=== PATIENT | male | born 1970 | race Caucasian/White ===

== ENCOUNTER 2020-05-24 11:35 | Inpatient (IN) | payer OTHER, SELFPAY ==
[~2020-05-24] VITALS: Ht 167.6 cm; Wt 108.4 kg
[2020-05-24] MEDS ORDERED: CEFTRIAXONE SODIUM 2 GM VIAL ONE ×2 (13:02→13:14)
[2020-05-24 13:07] LABS: BASOPHILS % (AUTO) 0.2 % (0.0-5.0); EOSINOPHILS % (AUTO) 0.8 % (0.0-8.0); HEMATOCRIT 39.9 % (42-54); LYMPHOCYTES % (AUTO) 6.6 % (21.0-51.0); MEAN CORPUSCULAR HEMOGLOBIN 32.1 pg (27.0-33.0); MEAN CORPUSCULAR HGB CONC 35.8 g/dL (32.0-36.0); MEAN CORPUSCULAR VOLUME 89.5 fL (79-99); MONOCYTES % (AUTO) 10.7 % (3.0-13.0); PLATELET COUNT (AUTO) 350 K/uL (130-400); RED BLOOD CELL COUNT(AUTO) 4.46 MIL/uL (4.50-6.20); RED CELL DISTRIBUTION WIDTH 11.4 % (11.0-15.5); WHITE BLOOD COUNT (AUTO) 16.1 K/uL (4.8-10.8)
[2020-05-24 13:07] LABS: APPEARANCE,URINE CLEAR (CLEAR); BILIRUBIN,URINE SMALL (NEGATIVE); COLOR,URINE YELLOW (YELLOW); GLUCOSE, URINE (UA) NEGATIVE (NEGATIVE); KETONES,URINE NEGATIVE (NEGATIVE); LEUKOCYTE ESTERASE ,URINE NEGATIVE (NEGATIVE); NITRATE,URINE NEGATIVE (NEGATIVE); OCCULT BLOOD,URINE LARGE (NEGATIVE); PROTEIN,URINE 100 mg/dL (NEGATIVE)
[2020-05-24 13:11] LABS: INR 1.05 (0.85-1.15); PARTIAL THROMBOPLASTIN TIME 36.5 SEC (26.3-35.5); PROTHROMBIN TIME 11.3 SEC (9.6-11.6)
[2020-05-24 13:21] LABS: ALANINE AMINOTRANSFERASE 33 U/L (12-78); ALBUMIN 2.9 g/dL (3.5-5.0); ASPARTATE AMINOTRANSFERASE 19 U/L (10-37); BILIRUBIN,TOTAL 1.1 mg/dL (0.2-1.0); CARBON DIOXIDE 26 mmol/L (21-32); CHLORIDE 91 mmol/L (101-111); CREATINE KINASE, TOTAL 137 U/L (21-232); CREATININE 1.2 mg/dL (0.5-1.5); GLOMERULAR FILTR. RATE CALC 69 mL/min (>60); GLUCOSE,RANDOM 131 mg/dL (70-105); MYOGLOBIN 71 ng/mL (10-92); POTASSIUM 3.9 mmol/L (3.5-5.1); SODIUM SERUM 125 mmol/L (136-145); TOTAL PROTEIN, SERUM 8.3 g/dL (6.0-8.3); TROPONIN I < 0.04 ng/mL (0.00-0.06); UREA NITROGEN, BLOOD 15 mg/dL (7-18)
[2020-05-24 13:23] LABS: BACTERIA,URINE Few /HPF (None Seen); MUCUS,URINE Moderate LPF (None Seen); SQUAMOUS EPITHELIAL CELL,UR Rare /HPF (0-2); WBC,URINE 0-1 /HPF (0-1)
[2020-05-24] MEDS ORDERED: ENOXAPARIN SODIUM 120 MG/0.8ML SQ ONE (15:00)
[2020-05-24] MEDS ORDERED: VANCOMYCIN 1GM+NS 250ML 250 ML IV SCH (15:30)
[2020-05-24] MEDS ORDERED: ACETAMINOPHEN 325 MG TAB PO PRN ×2 (15:30)
[2020-05-24] MEDS ORDERED: ONDANSETRON HCL 4 MG/2 ML VIAL IV PRN (15:30)
[2020-05-24] MEDS ORDERED: LACTULOSE 20 GM/30 ML UDCUP PO PRN (15:30)
[2020-05-24] MEDS ORDERED: ERGOCALCIFEROL (VITAMIN D2) 50,000 UNIT CAPSULE PO ONE (15:30)
[2020-05-24] MEDS ORDERED: VANCOMYCIN PROTOCOL PER PHARMACY IV SCH (15:45)
[2020-05-24] MEDS ORDERED: VANCOMYCIN 2 GM in SODIUM CHLORIDE 0.9% 500ML 500 ML IV ONE (17:00)
[2020-05-24] MEDS ORDERED: ACETAMINOPHEN 325 MG TAB ONE (18:32)
[2020-05-24] MEDS: CEFTRIAXONE SODIUM 1 GM IVP SCH (19:00)
[2020-05-24] MEDS: SODIUM CHLORIDE 0.9% 1000ML 1,000 ML IV SCH (19:00)
[2020-05-24] MEDS ORDERED: NICOTINE 14 MG/ 24 HR PATCH TD SCH (20:00)
[2020-05-24] MEDS ORDERED: FAMOTIDINE/PF 20 MG/2 ML VIAL IV ONE (20:34)
[2020-05-24] MEDS ORDERED: SODIUM CHLORIDE 0.9% 1000ML 1,000 ML IV ONE (20:35)
[2020-05-24] MEDS ORDERED: IOHEXOL-350 75 ML VIAL IV ONE (20:48)
[2020-05-24] MEDS ORDERED: ZOSYN 3.375GM+NS 50ML 50 ML IV SCH (21:00)
[2020-05-24] MEDS: FAMOTIDINE 20MG TAB 20 MG TAB PO SCH (21:00)
[2020-05-24] MEDS ORDERED: IOHEXOL-350 50ML VIAL IV ONE (21:09)
[2020-05-25] MEDS ORDERED: ACETAMINOPHEN 325 MG TAB ONE ×2 (02:59→15:20)
[2020-05-25] MEDS ORDERED: CEFTRIAXONE SODIUM 1 GM ONE ×2 (05:31→18:01)
[2020-05-25] MEDS: VANCOMYCIN 1GM+NS 250ML 250 ML IV SCH ×2 (06:00→18:00)
[2020-05-25 06:35] LABS: BASOPHILS % (AUTO) 0.4 % (0.0-5.0); EOSINOPHILS % (AUTO) 0.8 % (0.0-8.0); HEMATOCRIT 34.7 % (42-54); LYMPHOCYTES % (AUTO) 8.2 % (21.0-51.0); MEAN CORPUSCULAR HEMOGLOBIN 31.9 pg (27.0-33.0); MEAN CORPUSCULAR HGB CONC 35.4 g/dL (32.0-36.0); MEAN CORPUSCULAR VOLUME 90.1 fL (79-99); MONOCYTES % (AUTO) 9.2 % (3.0-13.0); NEUTROPHILS % (AUTO) 80.6 % (40.0-77.0); PLATELET COUNT (AUTO) 294 K/uL (130-400); RED BLOOD CELL COUNT(AUTO) 3.85 MIL/uL (4.50-6.20); RED CELL DISTRIBUTION WIDTH 11.6 % (11.0-15.5); WHITE BLOOD COUNT (AUTO) 13.7 K/uL (4.8-10.8)
[2020-05-25] MEDS: CEFTRIAXONE SODIUM 1 GM IVP SCH ×2 (07:00→19:00)
[2020-05-25 07:02] LABS: ALBUMIN 2.2 g/dL (3.5-5.0); BILIRUBIN,TOTAL 0.7 mg/dL (0.2-1.0); CREATININE 1.1 mg/dL (0.5-1.5)
[2020-05-25 07:17] LABS: CRP QUANTITATIVE 358.8 mg/L (0.00-9.0)
[2020-05-25] MEDS ORDERED: ZINC SULFATE 220 CAPSULE ONE (08:51)
[2020-05-25] MEDS ORDERED: ENOXAPARIN SODIUM 40 MG/0.4 ML SYRINGE SQ ONE (08:51)
[2020-05-25] MEDS ORDERED: ASCORBIC ACID 500 MG TAB ONE (08:51)
[2020-05-25] MEDS ORDERED: FAMOTIDINE/PF 20 MG/2 ML VIAL IV ONE (08:52)
[2020-05-25] MEDS: NICOTINE 14 MG/ 24 HR PATCH TD SCH (09:00)
[2020-05-25] MEDS: ENOXAPARIN SODIUM 40 MG/0.4 ML SYRINGE SQ SCH (09:00)
[2020-05-25] MEDS: FAMOTIDINE 20MG TAB 20 MG TAB PO SCH ×2 (09:00→21:18)
[2020-05-25] MEDS: ZINC SULFATE 220 CAPSULE PO SCH (09:00)
[2020-05-25] MEDS: ASCORBIC ACID 500 MG TAB PO SCH (09:00)
--- NOTE | 2020-05-25 16:24 | NUR ---
CALL MADE TO PATIENT FOR DC PLANNING, CONTACT NUMBER [email or web address] UPDATED [phone] AND [id number] ADDED TO FACE SHEET/FAXED TO REGISTRTION. JOANNE STATES HE IS ACTIVE, INDEPENDENT, EMPLOYED, NO DME, NO MOBILITY ISSUES- STATES HIS HOME HAS NOT STAIRS AND HE HAS NO DME. STATES DROVE HIMSELF HERE IN HIS TRUCK AND WILL DRIVE HIMSELF HOME, HIS GIRL FRIEND JUST HAS A CAMPER TRAILER AND CANNOT BRING IT ALL THE WAY DOWN HERE STATES DOES NOT GO TO DOCTORS- 'ONLY THE D.O.T. 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 STATS 'TOO WEAK TO WALK ACROSS THE ROOM RIGHT NOW" ADVISE PATIENT THAT HE MAY NOT BE ABLE TO DRIVE HIS TRUCK WHEN HE IS CLEARED FOR DISCHARGE, AND TO THINK [employer] OPTIONS FOR GETTING HOME, THAT THIS MIGHT NOT HAVE A QUICK FIX, CM TO FOLLOW Addendum: 05/25/20 at 1631 by JULIANE BRENNER RN CM Amended: Links added.
[2020-05-25] MEDS ORDERED: VANCOMYCIN 1GM+NS 250ML 250 ML IV ONE (18:01)
[2020-05-25 18:25] VITALS: BP 131/87
--- NOTE | 2020-05-25 18:46 | NUR ---
Patient received from ER at 1820 this shift. VSS on Room air. COVID results pending. Will endorse status to oncoming RN.
[2020-05-25 20:00] VITALS: BP 130/82
[2020-05-25] MEDS: SODIUM CHLORIDE 0.9% 1000ML 1,000 ML IV SCH ×2 (21:00→21:19)
--- NOTE | 2020-05-25 22:16 | NUR ---
Hospitalist (Ligia Kellogg) returned page and informed Vancomycin was stopped at 2044 due to pts skin appearing red and 500ml of NS bolus infusing at this time; pt denies any SOB, itchiness and/or any other symptoms outside of his skin being red; Hospitalist ordered 12.5mg of Benadryl IV; medication administered @2224; Dr Gale called @2258 and @230 to be informed of Vancomycin being stopped; no answer at this time; will call again prior to next dose due time. GISELE Briggs Addendum: 05/26/20 at 0637 by Mavis Arroyo RN RN Dr Gale informed of pts "red man syndrome" while infusing vancomycin; physician stated to administer next dose at slower rate. GISELE Briggs
[2020-05-25] MEDS ORDERED: DiphenhydrAMINE HCL 50 MG/ML VIAL ONE (22:17)
[2020-05-26] VITALS: BP 144/78
[2020-05-26 04:00] VITALS: BP 136/75
[2020-05-26] MEDS: VANCOMYCIN 1GM+NS 250ML 250 ML IV SCH (06:00)
[2020-05-26] MEDS: CEFTRIAXONE SODIUM 1 GM IVP SCH (06:18)
[2020-05-26 06:59] LABS: CRP QUANTITATIVE 365.1 mg/L (0.00-9.0)
[2020-05-26 08:00] VITALS: BP 129/74
[2020-05-26] MEDS: ASCORBIC ACID 500 MG TAB PO SCH (08:17)
[2020-05-26] MEDS: FAMOTIDINE 20MG TAB 20 MG TAB PO SCH ×2 (08:17→19:53)
[2020-05-26] MEDS: ZINC SULFATE 220 CAPSULE PO SCH (08:17)
[2020-05-26] MEDS: ENOXAPARIN SODIUM 40 MG/0.4 ML SYRINGE SQ SCH (08:19)
[2020-05-26] MEDS ORDERED: MORPHINE SULFATE 2 MG/ML 1ML SYG IM PRN ×2 (08:30→12:30)
[2020-05-26 11:00] VITALS: BP 119/89
[2020-05-26] MEDS ORDERED: RENAL DOSE IV SCH (11:00)
[2020-05-26] MEDS: ZOSYN 3.375GM+NS 50ML 50 ML IV SCH ×2 (11:00→18:46)
[2020-05-26] MEDS ORDERED: CHLORDIAZEPOXIDE HCL 25 MG CAP PO PRN ×2 (11:15)
[2020-05-26] MEDS ORDERED: PHARMACY COMMUNICATION MISC PRN (11:15)
[2020-05-26] MEDS ORDERED: COMPOUND IV REFRIGERATED 1 EACH IVSOLN MISC PRN (11:15)
[2020-05-26] MEDS ORDERED: LORAZEPAM 2 MG/ML 1 ML VIAL IVP PRN ×2 (11:15)
[2020-05-26] MEDS ORDERED: VANCOMYCIN 1.25 GM in SODIUM CHLORIDE 0.9% 250 ML IV SCH ×2 (12:00→21:00)
[2020-05-26] MEDS: MORPHINE SULFATE 2 MG/ML 1ML SYG IV PRN ×3 (14:12→22:38)
[2020-05-26 16:00] VITALS: BP 134/65
[2020-05-26] MEDS: NICOTINE 14 MG/ 24 HR PATCH TD SCH (17:40)
[2020-05-26] MEDS: ACETAMINOPHEN-CODEINE 300/30MG TAB PO PRN (19:56)
[2020-05-26 20:00] VITALS: BP 138/82
[2020-05-26] MEDS ORDERED: DiphenhydrAMINE HCL 50 MG/ML VIAL IV ONE (21:45)
[2020-05-26] MEDS ORDERED: METHYLPREDNISOLONE SOD SUCC 40MG/ML 1ML IVP ONE (22:00)
[2020-05-27] VITALS (7 sets, daily range): BP systolic 115–129; BP diastolic 79–89
[2020-05-27] MEDS: ZOSYN 3.375GM+NS 50ML 50 ML IV SCH ×3 (02:46→20:10)
[2020-05-27] MEDS: MORPHINE SULFATE 2 MG/ML 1ML SYG IV PRN (06:10)
[2020-05-27 06:22] LABS: BASOPHILS % (AUTO) 0.2 % (0.0-5.0); EOSINOPHILS % (AUTO) 0.2 % (0.0-8.0); HEMATOCRIT 37.4 % (42-54); LYMPHOCYTES % (AUTO) 4.4 % (21.0-51.0); MEAN CORPUSCULAR HEMOGLOBIN 31.5 pg (27.0-33.0); MEAN CORPUSCULAR HGB CONC 34.8 g/dL (32.0-36.0); MEAN CORPUSCULAR VOLUME 90.6 fL (79-99); MONOCYTES % (AUTO) 5.5 % (3.0-13.0); NEUTROPHILS % (AUTO) 88.7 % (40.0-77.0); PLATELET COUNT (AUTO) 428 K/uL (130-400); RED BLOOD CELL COUNT(AUTO) 4.13 MIL/uL (4.50-6.20); RED CELL DISTRIBUTION WIDTH 11.5 % (11.0-15.5); WHITE BLOOD COUNT (AUTO) 13.9 K/uL (4.8-10.8)
--- NOTE | 2020-05-27 07:30 | NUR ---
ASSESSMENT ENCOUNTERED PT A&OX3, CALM COOPERATIVE AND DOES NOT APPEAR TO BE IN ANY DISTRESS NOR ANY NEURO DEFICITS PRESENT. PT DENIES PAIN, SOB, NAUSEA. PT DOES HAVE GENERALIZED BODY WEAKNESS, ACHES AND REDNESS TO ALL EXTREMITIES. PT IS ABLE TO TOLERATE SELF FEED AND URINAL AT OWN PACE. PT IS ABLE TO TOLERATE FOODS, FLUIDS AND MEDICATION WITH NO THROAT CLEARING OR COUGH. CALL LIGHT WITHIN REACH.
[2020-05-27 07:38] LABS: BILIRUBIN,TOTAL 0.4 mg/dL (0.2-1.0); CREATININE 1.1 mg/dL (0.5-1.5); POTASSIUM 4.3 mmol/L (3.5-5.1); TOTAL PROTEIN, SERUM 7.2 g/dL (6.0-8.3)
[2020-05-27 07:49] LABS: CRP QUANTITATIVE 358.1 mg/L (0.00-9.0)
[2020-05-27] MEDS: MULTIVITAMIN TABLET PO SCH (07:55)
[2020-05-27] MEDS: FOLIC ACID 1 MG TABLET PO SCH (07:56)
[2020-05-27] MEDS: ASCORBIC ACID 500 MG TAB PO SCH (07:56)
[2020-05-27] MEDS: ZINC SULFATE 220 CAPSULE PO SCH (07:57)
[2020-05-27] MEDS: ENOXAPARIN SODIUM 40 MG/0.4 ML SYRINGE SQ SCH (07:57)
[2020-05-27] MEDS: FAMOTIDINE 20MG TAB 20 MG TAB PO SCH ×2 (08:07→20:10)
[2020-05-27] MEDS: ACETAMINOPHEN-CODEINE 300/30MG TAB PO PRN (08:09)
[2020-05-27] MEDS ORDERED: METHYLPREDNISOLONE SOD SUCC 40MG/ML 1ML IVP ONE (09:00)
[2020-05-27] MEDS: CLINDAMYCIN 600 MG/D5% WATER 50 ML IV SCH ×3 (09:15→20:10)
--- NOTE | 2020-05-27 13:30 | NUR ---
TRANSFER TO 3RD FLOOR, REPORT GIVEN TO NURSE TY, PT TRANSFER IN BED.
--- NOTE | 2020-05-27 22:32 | NUR ---
patient claims he showered in the day time
[2020-05-28] VITALS (7 sets, daily range): BP systolic 114–133; BP diastolic 72–92
[2020-05-28] MEDS: ZOSYN 3.375GM+NS 50ML 50 ML IV SCH ×3 (01:24→21:07)
[2020-05-28] MEDS: CLINDAMYCIN 600 MG/D5% WATER 50 ML IV SCH ×4 (01:24→21:07)
[2020-05-28 06:04] LABS: BASOPHILS % (AUTO) 0.3 % (0.0-5.0); EOSINOPHILS % (AUTO) 0.1 % (0.0-8.0); HEMATOCRIT 33.8 % (42-54); LYMPHOCYTES % (AUTO) 12.2 % (21.0-51.0); MEAN CORPUSCULAR HEMOGLOBIN 31.6 pg (27.0-33.0); MEAN CORPUSCULAR HGB CONC 34.9 g/dL (32.0-36.0); MEAN CORPUSCULAR VOLUME 90.6 fL (79-99); MONOCYTES % (AUTO) 7.7 % (3.0-13.0); NEUTROPHILS % (AUTO) 78.2 % (40.0-77.0); PLATELET COUNT (AUTO) 450 K/uL (130-400); RED BLOOD CELL COUNT(AUTO) 3.73 MIL/uL (4.50-6.20); RED CELL DISTRIBUTION WIDTH 11.8 % (11.0-15.5); WHITE BLOOD COUNT (AUTO) 14.1 K/uL (4.8-10.8)
[2020-05-28 06:23] LABS: BILIRUBIN,TOTAL 0.2 mg/dL (0.2-1.0); POTASSIUM 3.7 mmol/L (3.5-5.1); TOTAL PROTEIN, SERUM 6.8 g/dL (6.0-8.3)
[2020-05-28] MEDS: NICOTINE 14 MG/ 24 HR PATCH TD SCH ×2 (10:49→10:55)
[2020-05-28] MEDS: ASCORBIC ACID 500 MG TAB PO SCH (10:50)
[2020-05-28] MEDS: ZINC SULFATE 220 CAPSULE PO SCH (10:50)
[2020-05-28] MEDS: ENOXAPARIN SODIUM 40 MG/0.4 ML SYRINGE SQ SCH (10:51)
[2020-05-28] MEDS: FAMOTIDINE 20MG TAB 20 MG TAB PO SCH ×2 (10:53→21:06)
[2020-05-28] MEDS: FOLIC ACID 1 MG TABLET PO SCH (10:54)
[2020-05-28] MEDS: MULTIVITAMIN TABLET PO SCH (10:54)
[2020-05-28] MEDS: ACETAMINOPHEN-CODEINE 300/30MG TAB PO PRN (15:47)
--- NOTE | 2020-05-28 20:20 | NUR ---
PM Assessment Received pt lying comfortably watching TV. Routine assessment done, plan of care discuss, made continues with the same IV ABX treatment. Currently saline lock noted infiltrated,discontinued aseptically with catheter tip intact. New access initiated aseptically to the left forearm with good blood return. Pt currently denies discomfort.
[2020-05-29] MEDS: CLINDAMYCIN 600 MG/D5% WATER 50 ML IV SCH (03:16)
[2020-05-29 03:26] VITALS: BP 128/79
[2020-05-29] MEDS ORDERED: ZOSYN 3.375GM+NS 50ML 50 ML IV SCH (05:00)
[2020-05-29 05:17] LABS: BASOPHILS % (AUTO) 0.8 % (0.0-5.0); EOSINOPHILS % (AUTO) 1.3 % (0.0-8.0); LYMPHOCYTES % (AUTO) 21.3 % (21.0-51.0); MEAN CORPUSCULAR HEMOGLOBIN 31.3 pg (27.0-33.0); MEAN CORPUSCULAR HGB CONC 34.2 g/dL (32.0-36.0); MEAN CORPUSCULAR VOLUME 91.6 fL (79-99); MONOCYTES % (AUTO) 8.6 % (3.0-13.0); NEUTROPHILS % (AUTO) 64.2 % (40.0-77.0); PLATELET COUNT (AUTO) 544 K/uL (130-400); RED BLOOD CELL COUNT(AUTO) 3.93 MIL/uL (4.50-6.20); RED CELL DISTRIBUTION WIDTH 11.7 % (11.0-15.5); WHITE BLOOD COUNT (AUTO) 10.1 K/uL (4.8-10.8)
[2020-05-29 05:35] LABS: ALBUMIN 2.2 g/dL (3.5-5.0); BILIRUBIN,TOTAL 0.3 mg/dL (0.2-1.0); POTASSIUM 3.8 mmol/L (3.5-5.1); TOTAL PROTEIN, SERUM 7.2 g/dL (6.0-8.3)
[2020-05-29 06:12] LABS: CREATININE 1.1 mg/dL (0.5-1.5)
[2020-05-29 07:20] VITALS: BP 132/75
[2020-05-29] MEDS: MULTIVITAMIN TABLET PO SCH (10:31)
[2020-05-29] MEDS: FOLIC ACID 1 MG TABLET PO SCH (10:31)
[2020-05-29] MEDS: ASCORBIC ACID 500 MG TAB PO SCH (10:32)
[2020-05-29] MEDS: FAMOTIDINE 20MG TAB 20 MG TAB PO SCH (10:32)
[2020-05-29] MEDS: ZINC SULFATE 220 CAPSULE PO SCH (10:33)
[2020-05-29] MEDS: ENOXAPARIN SODIUM 40 MG/0.4 ML SYRINGE SQ SCH (10:34)
[2020-05-29] MEDS: NICOTINE 14 MG/ 24 HR PATCH TD SCH (10:35)
[2020-05-29 10:37] VITALS: BP 136/86
[2020-05-29] MEDS ORDERED: CEFUROXIME AXETIL 250 MG TABLET PO SCH (12:45)
== END 2020-05-29 16:00 | disposition home or self-care (01) | DRG 872 ==
LOC: EDH 11:35 → EDHIP 11:36 → 4CH 05-25 18:09 → 3CH 05-27 12:48
PROVIDERS: ADMIT Internal Medicine; ATTEND Internal Medicine
DX: A41.9 Sepsis, unspecified organism (principal); L03.116 Cellulitis of left lower limb; E87.1 Hypo-osmolality and hyponatremia; L03.115 Cellulitis of right lower limb; Z68.37 Body mass index [BMI] 37.0-37.9, adult; E66.01 Morbid (severe) obesity due to excess calories; F17.200 Nicotine dependence, unspecified, uncomplicated; K76.0 Fatty (change of) liver, not elsewhere classified; K76.89 Other specified diseases of liver; E88.09 Other disorders of plasma-protein metabolism, not elsewhere classified; I10 Essential (primary) hypertension; Z20.828 Contact with and (suspected) exposure to other viral communicable diseases; L27.0 Generalized skin eruption due to drugs and medicaments taken internally; T36.8X5A Adverse effect of other systemic antibiotics, initial encounter; Y92.89 Other specified places as the place of occurrence of the external cause
CPT/HCPCS: 36415; 71045; 71275; 76700; 80053; 80061; 81001; 82550; 82948; 83036; 83605; 83615; 83874; 83880; 83935; 84145; 84300; 84484; 85025; 85378; 85610; 85730; 86140; 86900; 86901; 87040; 87088; 93005; 93970; 93971; G0378; J0696; J1200; J1650; J2543; J2920; J3370; J3490; J7030; J7040; J7050; Q9967; U0003